=== PATIENT | female | born 1945 | race Caucasian/White ===

== ENCOUNTER 2019-05-19 12:48 | Outpatient (CLI) | payer MEDICARE, OTHER ==
[2014-11-21 08:56] VITALS: BP 155/83
--- NOTE | 2019-05-20 16:49 | Diagnostic Imaging Report ---
PAN ANDREW (CHANTELLE) - OP [facility] [address] [id number] Report Submission Date: May 19, 2019 1:50:23 PM CDT Patient Study Name: VANNESSA JIMÉNEZ Date: May 19, 2019 12:52:15 PM CDT Modality Type: DX Gender: F Description: CALCANEUS 2 VIEWS OR MORE : 47 Institution: [facility] Physician: PAN ANDREW (CHANTELLE) - OP Exam: Left calcaneus. History: Pain. Semi axial and lateral projections of the left heel are submitted. No signs of acute fracture or dislocation is seen. No bony erosions are seen. Soft tissue prominence over the heel is noted. Impression: No bony abnormality. Soft tissue swelling. Electronically signed on May 19, 2019 1:50:23 PM CDT by: Cyril HERRERA
== END 2019-05-19 12:55 ==
LOC: RAD 12:48
PROVIDERS: ATTEND Nurse Practitioner Family
DX: M79.672 Pain in left foot (principal)
CPT/HCPCS: 73650